=== PATIENT | female | born 1985 | race Caucasian/White ===

== ENCOUNTER → 2020-12-12 | Outpatient (CLI) | payer BC ==
[~2020-12-12] MED LIST: ALPR1TAB2 PO; GADOTERATE 10 MMOL/20ML SYR ONE; OMNIPAQUE 350 MG/ML, 100ML BOTTLE ONE
== END | disposition home or self-care (01) ==
LOC: CFH 08:13
PROVIDERS: ATTEND Registered Nurse
DX: I63.81 Other cerebral infarction due to occlusion or stenosis of small artery (principal); G43.909 Migraine, unspecified, not intractable, without status migrainosus; F40.240 Claustrophobia
CPT/HCPCS: 70496; 70498; 70553; A9575; Q9967